=== PATIENT | male | born 1990 | race Caucasian/White ===

== ENCOUNTER 2016-11-15 14:59 | Emergency (ER) | payer MEDICAID ==
[~2016-11-15] VITALS: Ht 185.4 cm; Wt 82.6 kg
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
--- NOTE | 2016-11-15 15:34 | NUR ---
[facility] TAPE CUTTER AT BEDSIDE FOR EVAL.
--- NOTE | 2016-11-15 16:07 | NUR ---
PT WILL BE DISCHARGED TO PD TO BE TAKEN TO [facility]. DISCHARGE IN STABLE CONDIOTION.
[2016-11-15 16:21] VITALS: BP 128/84
== END 2016-11-15 16:22 | disposition home or self-care (01) ==
LOC: ER 15:05
DX: S36.60XA Unspecified injury of rectum, initial encounter (principal); R10.9 Unspecified abdominal pain; T74.21XA Adult sexual abuse, confirmed, initial encounter; F32.9 Major depressive disorder, single episode, unspecified; F41.9 Anxiety disorder, unspecified; M51.36 Other intervertebral disc degeneration, lumbar region; M54.9 Dorsalgia, unspecified; G89.29 Other chronic pain; Y04.8XXA Assault by other bodily force, initial encounter; Y93.89 Activity, other specified; Y92.89 Other specified places as the place of occurrence of the external cause; Y99.9 Unspecified external cause status
CPT/HCPCS: 99283; A4606; Z7610